=== PATIENT | male | born 1975 | race Caucasian/White ===

== ENCOUNTER 2016-12-20 15:42 | Emergency (ER) | payer SELFPAY ==
[~2016-12-20] VITALS: Ht 157.5 cm; Wt 80.5 kg
[~2016-12-20 15:42] MED LIST: CIPR500T4 PO
[2016-12-20 15:48] VITALS: Ht 157.5 cm; Wt 80.5 kg
[2016-12-20 16:44] LABS: ADD SCAN DIFF NO
[2016-12-20 16:47] LABS: ABNORMAL IP MESSAGE 1; HEMATOCRIT 27.4 % (42.0-52.0); HEMOGLOBIN 9.3 g/dl (14.0-18.0); MEAN CORPUSCULAR HEMOGLOBIN 32.3 pg (29.0-33.0); MEAN CORPUSCULAR HGB CONC 33.9 g/dl (32.0-37.0); MEAN CORPUSCULAR VOLUME 95.1 fl (82.0-101.0); MEAN PLATELET VOLUME 11.5 fl (7.4-10.4); PLATELET COUNT 62 10^3/UL (140-415); RED BLOOD COUNT 2.88 10^6/ul (4.70-6.10); RED CELL DISTRIBUTION WIDTH 20.7 % (11.5-14.5); WHITE BLOOD COUNT 2.6 10^3/ul (4.8-10.8)
[2016-12-20 17:07] LABS: INR 2.02; PROTIME 23.1 Sec (12.2-14.2); PT RATIO 1.8
[2016-12-20 17:08] LABS: PARTIAL THROMBOPLASTIN TIME 41.7 Sec (25.0-35.0)
[2016-12-20 17:09] LABS: ALBUMIN 2.2 g/dl (3.3-4.9); ALBUMIN/GLOBULIN RATIO 0.51; BILIRUBIN,INDIRECT 2.5 mg/dl (0-1.1); BILIRUBIN,TOTAL 2.5 mg/dl (0.2-1.3); CALCIUM 7.8 mg/dl (8.4-10.2); CREATININE 0.49 mg/dl (0.61-1.24); POTASSIUM 3.8 mmol/L (3.5-5.1); TOTAL PROTEIN 6.5 g/dl (6.1-8.1)
[2016-12-20 17:15] LABS: LYMPHOCYTES # 0.6 10^3/ul (0.8-2.9); MONOCYTE # 0.4 10^3/ul (0.3-0.9); NEUTROPHIL # 1.6 10^3/ul (1.6-7.5)
[2016-12-20 17:16] LABS: ANISOCYTOSIS 1+; PLATELET ESTIMATE PLT APPEAR DECREASED
[2016-12-20] MEDS ORDERED: ONDANSETRON 4 MG INJ IV STA (17:24)
[2016-12-20] MEDS ORDERED: FURO-109 PO (19:59)
--- NOTE | 2016-12-20 20:08 | ERD ---
ER Documentation Chief Complaint Date/Time DATE: 12/20/16 TIME: 20:01 Chief Complaint Complains of nosebleed since today HPI This 41-year-old male presents for nosebleed began today. It lasted approximately 10 minutes and resolved when he arrived to the emergency room. He has not had any frequent nosebleeds. He does have liver failure that he knows of. He has not been told that he has increased bleeding times or any coagulopathy. Also has bilateral lower extremity edema is been going on for some time. Says that it makes it difficult to walk sometimes. He has not been did prescribe any diuretics yet. He just obtained [employer] insurance. He has not seen his primary care doctor yet. Currently patient denies fever chills, shortness of breath, chest pain. He also has no confusion or headache. ROS All systems reviewed and are negative except as per history of present illness. Medications Home Meds Active Scripts Furosemide* (Lasix*) 40 Mg Tablet, 40 MG PO DAILY, #20 TAB Prov:KATHY ROBLERO DO 12/20/16 Ciprofloxacin Hcl* (Ciprofloxacin Hcl*) 500 Mg Tablet, 500 MG PO BID for 7 Days , TAB Prov:JEROMY BARNETT MD 12/14/16 Allergies Allergies: Coded Allergies: No Known Allergy (Unverified , 12/14/16) PMhx/Soc History of Surgery: No Anesthesia Reaction: No Hx Neurological Disorder: No Hx Respiratory Disorders: No Hx Cardiac Disorders: No Hx Psychiatric Problems: No Hx Miscellaneous Medical Probl: Yes (Chirrosis of the liver.) Hx Alcohol Use: No (quit 2 months ago.) Hx Substance Use: No Hx Tobacco Use: No Smoking Status: Never smoker Physical Exam Vitals Vital Signs Date Time Temp Pulse Resp B/P Pulse Ox O2 Delivery O2 Flow Rate FiO2 12/20/16 18:31 98.8 65 18 124/79 98 Room Air 12/20/16 15:48 99.8 88 20 136/88 98 Physical Exam Const: [] No distress Head: Atraumatic Eyes: Scleral icterus, EOMI, PRL ENT: Normal External Ears, Nose and Mouth. Dried blood on nares. Posterior oropharynx with scant streak of non-mobile blood. Neck: Full range of motion..~ No meningismus. Resp: Clear to auscultation bilaterally Cardio: Regular rate and rhythm, no murmurs Abd: Soft, non tender, mild distention with positive fluid wave, normal bowel sounds Skin: Jaundice Back: No midline or flank tenderness Ext: No cyanosis, 1+ pitting edema to bilateral lower extremities. Neur: Awake and alert and oriented 3, no focal deficits peer Psych: Normal Mood and Affect Result Diagram: 12/20/16 1630 12/20/16 1630 Results 24 hrs Laboratory Tests Test 12/20/16 16:30 White Blood Count 2.610^3/ul Red Blood Count 2.8810^6/ul Hemoglobin 9.3g/dl Hematocrit 27.4% Mean Corpuscular Volume 95.1fl Mean Corpuscular Hemoglobin 32.3pg Mean Corpuscular Hemoglobin Concent 33.9g/dl Red Cell Distribution Width 20.7% Platelet Count 6210^3/UL Mean Platelet Volume 11.5fl Neutrophils % 60.0% Lymphocytes % 22.0% Monocytes % 17.0% Eosinophils % 1.0% Neutrophils # 1.610^3/ul Lymphocytes # 0.610^3/ul Monocytes # 0.410^3/ul Eosinophils # 0.010^3/ul Platelet Estimate PLT APPEAR DECREASED Anisocytosis 1+ Prothrombin Time 23.1Sec Prothrombin Time Ratio 1.8 INR International Normalized Ratio 2.02 Activated Partial Thromboplast Time 41.7Sec Sodium Level 139mmol/L Potassium Level 3.8mmol/L Chloride Level 107mmol/L Carbon Dioxide Level 26mmol/L Anion Gap 10 Blood Urea Nitrogen 7mg/dl Creatinine 0.49mg/dl Glucose Level 92mg/dl Calcium Level 7.8mg/dl Total Bilirubin 2.5mg/dl Direct Bilirubin 0.00mg/dl Indirect Bilirubin 2.5mg/dl Aspartate Amino Transf (AST/SGOT) 79IU/L Alanine Aminotransferase (ALT/SGPT) 57IU/L Alkaline Phosphatase 319IU/L Total Protein 6.5g/dl Albumin 2.2g/dl Globulin 4.30g/dl Albumin/Globulin Ratio 0.51 Current Medications Medications (Trade) Dose Ordered Sig/Cher Route PRN Reason Start Time Stop Time Status Last Admin Dose Admin Ondansetron HCl (Zofran Inj) 4 mg ONCE STAT IV 12/20/16 17:24 12/20/16 17:25 DC 12/20/16 17:29 Procedures/MDM Alcoholic liver cirrhosis with accompanying pancytopenia and coagulopathy as well as peripheral edema. We checked at this hospital and the patient does currently have [facility] with his primary care being at [facility]. Ultrasound was checked for elevated bilirubin as well as gallstone seen on prior CT. Patient has no evidence of cholecystitis. Patient was offered admission to the hospital but declined saying that he prefer to go home and follow-up as an outpatient. Printed his laboratories for him and informed him that he has increased bleeding time because of his liver failure. He has both a high INR as well as low platelets. He did not have any further nose bleeding the emergency room and did not require any treatment for his nosebleeds. I am going to prescribe him some Lasix as his renal function is still excellent. Instructed to follow-up in the next 2 days at the [facility] clinic. Patient has no signs of spontaneous bacterial peritonitis. I have informed to not go immediately to any emergency room if he has fevers, chills, chest pain or weakness or any further bleeding complications.. Departure Diagnosis: Primary Impression: Coagulopathy Additional Impressions: Epistaxis Cirrhosis Elevated liver enzymes Condition: Stable Patient Instructions: Cirrhosis of the Liver, Epistaxis (Adult) Referrals: [facility] YOU HAVE RECEIVED A MEDICAL SCREENING EXAM AND THE RESULTS INDICATE THAT YOU DO NOT HAVE A CONDITION THAT REQUIRES URGENT TREATMENT IN THE EMERGENCY DEPARTMENT. FURTHER EVALUATION AND TREATMENT OF YOUR CONDITION CAN WAIT UNTIL YOU ARE SEEN IN YOUR DOCTORS OFFICE WITHIN THE NEXT 1-2 DAYS. IT IS YOUR RESPONSIBILITY TO MAKE AN APPOINTMENT FOR FOLOW-UP CARE. IF YOU HAVE A PRIMARY DOCTOR --you should call your primary doctor and schedule an appointment IF YOU DO NOT HAVE A PRIMARY DOCTOR YOU CAN CALL OUR PHYSICIAN REFERRAL HOTLINE AT IF YOU CAN NOT AFFORD TO SEE A PHYSICIAN YOU CAN CHOSE FROM THE FOLLOWING [facility] [address] [facility] [address] [facility] [address] [facility] [address] [facility] [address] [facility]. [facility]. [address] Additional Instructions: Llame al doctor MAANA y miguel christiano DARRION PARA DENTRO DE 1-2 LUONG.Dgale a la secretaria que nosotros le instruimos hacer esta darrion.Avise o llame si mejia condicin se empeora antes de la darrion. Regresa aqui si peor o no mejor. KATHY ROBLERO DO December 20, 2016 20:08
[2016-12-20 20:23] VITALS: BP 128/82; PULSE 68; RESP 18; TEMP 98.5
== END 2016-12-20 20:24 | disposition home or self-care (01) ==
LOC: E/R 15:42
DX: D68.9 Coagulation defect, unspecified (principal); K74.60 Unspecified cirrhosis of liver; R74.8 Abnormal levels of other serum enzymes
CPT/HCPCS: 36415; 80053; 85025; 85610; 85730; 96374; 99284; J2405

== ENCOUNTER 2018-02-11 00:15 | Emergency (ER) | END 2018-02-11 04:21 | disposition home or self-care (01) ==